=== PATIENT | female | born 1980 | race Caucasian/White ===

== ENCOUNTER 2017-04-30 19:56 | Emergency (ER) | payer SELFPAY ==
[2017-04-30 20:12] VITALS: BMI 22.4
[2017-04-30 20:20] VITALS: BP 107/73; PULSE 78; RESP 16; TEMP 98.3; O2SAT 98
[2017-04-30 21:35] LABS: PH,URINE 6.5 (4.7-8.0); URINE BILIRUBIN NEGATIVE (NEGATIVE); URINE BLOOD SMALL (NEGATIVE); URINE GLUCOSE (UA) NEGATIVE (NEGATIVE); URINE KETONE NEGATIVE (NEGATIVE); URINE LEUKOCYTE ESTERASE TRACE Leu/uL (NEGATIVE); URINE PROTEIN NEGATIVE mg/dL (<30 mg/dL); URINE UROBILINOGEN 0.2 E.U./dL (<1 E.U./dL)
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
[2017-04-30 21:42] LABS: URINE APPEARANCE SL CLOUDY (CLEAR); URINE COLOR LIGHT YELLOW (YELLOW)
[2017-04-30 21:47] LABS: URINE BACTERIA FEW (NEG)
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
== END 2017-04-30 22:52 | disposition home or self-care (01) ==
LOC: ED 19:56
DX: S20.211A Contusion of right front wall of thorax, initial encounter (principal); S76.011A Strain of muscle, fascia and tendon of right hip, initial encounter; S80.811A Abrasion, right lower leg, initial encounter; T14.8 Other injury of unspecified body region; V01.90XA Pedestrian on foot injured in collision with pedal cycle, unspecified whether traffic or nontraffic accident, initial encounter